=== PATIENT | female | born 1960 | race Caucasian/White ===

== ENCOUNTER 2021-06-06 12:38 | Emergency (ER) | payer BC, SELFPAY ==
--- NOTE | ~2021-06-06 | CT_ITS ---
EXAMINATION: CT abdomen pelvis wo con DATE: 06/06/2021 17:52 INDICATION: Flank pain TECHNIQUE: Computed tomography (CT) of the abdomen and pelvis was performed without intravenous contr ast. Automated exposure control and iterative reconstruction technique were employed. The dose-length product was 187.18 mGy-cm. COMPARISON: None FINDINGS: Subpleural atelectasis/scarring in the right lower lobe. Heart size is normal. No pericardial or pleu ral effusion. Small sliding-type hiatal hernia. Liver, gallbladder, spleen, pancreas, left adrenal gl and and left kidney are normal. There is prominent right perinephric stranding which partially obscur es the likely normal right adrenal gland. There is mild right hydroureteronephrosis which extends to the bladder. No evident obstructing mass or stone. There is increased attenuation diffusely along the proximal to mid right ureter which suggests either hematuria or pyuria. Several the was in the pelvi s including peripheral to the distal right ureter. Bladder and anteverted uterus are normal. Extensiv e diverticulosis without adjacent inflammatory stranding to suggest acute diverticulitis. Small bowel and appendix are normal. No abscess or free intraperitoneal gas or fluid. No pathologically enlarged abdominal or pelvic lymphadenopathy. Small fat-containing left inguinal hernia. Mild lumbar levocurv ature. Chronic appearing L1 compression fracture with 20% anterior vertebral body height loss. IMPRESSION: 1. Prominent stranding surrounding the right kidney and ureter with mild right hydroureteronephrosis without evident obstructing stone or mass. Increased density to the urine in the proximal to mid righ t ureter suggests either hematuria or pyuria and would correlate with urinalysis. Given the absence o f a definitive etiology could also consider further evaluation with either CT urogram or ureteroscopy /retrograde pyelogram as clinically indicated. 2. Extensive diverticulosis. Reviewed, dictated and finalized at location . [facility] IMPRESSION: 1. Prominent stranding surrounding the right kidney and ureter with mild right hydroureteronephrosis without evident obstructing stone or mass. Increased dens ity to the urine in the proximal to mid right ureter suggests either hematuria or pyuria and would correlate with urinalysis. Given the absence of a definitiv e etiology could also consider further evaluation with either CT urogram or ure teroscopy/retrograde pyelogram as clinically indicated. 2. Extensive diverticulosis.
[2021-06-06 13:15] VITALS: BP 155/104; PULSE 110; RESP 18; TEMP 37.3; O2SAT 95
[2021-06-06] MEDS: ONDANSETRON INJ 4 MG/2 ML VIAL IV PUSH (16:13)
[2021-06-06] MEDS: MORPHINE SULFATE (*CRX) 4 MG/ML INJ IV PUSH ×2 (16:13→18:52)
[2021-06-06] MEDS: SODIUM CHLORIDE 0.9% IV 1,000 ML 999 ML IV CONT (16:13)
[2021-06-06 16:32] LABS: Basophils Absolute Auto 0.1 K/mm3 (0.0-0.1); Basophils Percent Auto 0.4 % (0.2-1.2); Eosinophils Absolute Auto 0.2 K/mm3 (0-0.3); Hematocrit 33.9 % (37.0-47.0); Hemoglobin 11.1 g/dL (12.0-15.0); Immature Granulocyte Absolute 0.15 K/mm3 (0.00-0.031); Immature Granulocyte Percent A 0.9 % (0-0.5); Lymphocytes Absolute Auto 0.24 K/mm3 (0.9-3.2); Lymphocytes Percent Auto 1.5 % (18.3-44.2); Mean Corpuscular HGB Conc 32.7 g/dl (32-36); Mean Corpuscular Hemoglobin 28.6 pg (26-34); Mean Corpuscular Volume 87.4 fl (80-100); Mean Platelet Volume 9.3 fl (7.4-10.4); Monocytes Absolute Auto 0.3 K/mm3 (0.1-0.6); Monocytes Percent Auto 1.6 % (2.6-8.5); Neutrophils Absolute Auto 15.6 K/mm3 (1.3-6.7); Neutrophils Percent Auto 94.6 % (45.5-73.1); Platelet Count Result 175 k/mm3 (150-375); Red Blood Count 3.88 M/mm3 (4.2-5.4); Red Cell Distribution Width 13.7 % (11.5-14.5); White Blood Count 16.5 K/mm3 (4.5-10.0)
[2021-06-06 16:46] LABS: Alanine Aminotransferase 17 U/L (4-35); Albumin Level 3.9 g/dL (3.5-5.1); Alkaline Phosphatase 87 U/L (38-126); Anion Gap 9 mmol/L (8-16); Aspartate Amino Transferase 28 U/L (14-36); Bilirubin,Total 1.5 mg/dL (0.2-1.3); Blood Urea Nitrogen 12 mg/dL (7-17); Calcium 8.5 mg/dL (8.4-10.2); Carbon Dioxide 23 mmol/L (22-30); Chloride 107 mmol/L (98-107); Estimated CRCL calculation 43 ml/min; Estimated Glomerular Filt Rate > 60; Glucose 118 mg/dL (65-110); Potassium 3.1 mmol/L (3.4-5.0); Sodium 139 mmol/L (137-145)
[2021-06-06 17:15] LABS: Add Urine Microscopic? YES; Appearance Urine Cloudy (Clear); Bilirubin Urine Negative (Negative); Blood Urine 3+ (Negative); Color Urine Yellow (Yellow); Glucose Urine UA Negative (Negative); Ketones Urine Trace mg/dL (Negative); Leukocyte Esterase Ur Trace LEU/UL (Negative); Nitrate Urine Negative (Negative); Protein Urine Negative (Negative); RBC Urine >75 /hpf (0-2); Specific Grav Ur 1.012 (1.001-1.035); Urobilinogen Urine Negative mg/dL (<2.0); WBC Urine >75 /hpf
--- NOTE | 2021-06-06 18:51 | ED.ABDPAIN ---
HPI - Abdominal Pain General Chief Complaint: Abdominal Pain Stated Complaint: Lower back pain. Blood in urine. Time Seen by Provider: 06/06/21 15:29 History of Present Illness HPI narrative: Patient is a 61-year-old female who presents ER with flank pain. Began today. Associate with pain in her right abdomen that goes to her right flank. Associated with nausea. Has urinary frequency and urgency and dysuria. Concerned she has infection so she took some oral penicillin at home. No improvement and came to the ER to be evaluated. No history of kidney stones or infection previously. Related Data Allergies Allergy/AdvReac Type Severity Reaction Status Date / Time codeine Allergy Unknown nausea Verified 07/13/19 09:38 poison shadi extract Allergy Unknown Skin Verified 07/13/19 09:38 Reaction Review of Systems Review of Systems: All systems reviewed & are unremarkable except as noted in HPI and below Constitutional: Constitutional: Denies chills, Denies fever(s) and Denies weakness ENT: Denies nasal congestion and Denies sore throat Cardiovascular: Cardiovascular: Denies chest pain, Denies rapid heart rate and Denies radiating jaw, neck or arm pain Respiratory: Respiratory: Denies cough, Denies dyspnea and Denies wheezing Gastrointestinal: Gastrointestinal: Reports abdominal pain, Denies diarrhea, Reports nausea and Reports vomiting Genitourinary: Genitourinary: Reports hematuria, Reports nocturia, Reports dysuria, Reports flank pain and Denies urinary incontinence PMF Past Medical History Medical History (Updated 06/06/21 @ 19:10 by Geoff Chamberlain MD) Healthy female adult Surgical History Surgical History (Updated 06/06/21 @ 18:52 by Geoff Chamberlain MD) History of tubal ligation Social History Social History Smoking status: Never smoker Alcohol intake: never Exam Narrative: GENERAL: Uncomfortable-appearing, well-nourished, and in no acute distress. HEAD: Normocephalic, atraumatic. ENT: Mucous membranes moist. CHEST: Clear to auscultation. No respiratory distress. HEART: Regular rate and rhythm. Normal peripheral pulses. ABDOMEN: Soft, nontender, nondistended, right CVA tenderness. EXTREMITIES: Normal range of motion. No edema. SKIN: Warm, dry, no rash. NEURO: Alert and oriented x3. PSYCH: Normal mood and affect. Course Course Emergency Course: Patient informed results. Given additional dose of pain medication as well as IV ceftriaxone. I discussed the case with Dr. Buck with urology. Feels patient likely has a stone that is passed versus pyelonephritis. He thinks IV antibiotic therapy and discharge is appropriate. Patient be given pain and nausea medication for home in addition to antibiotics. Dr. Buck would also like the patient to receive a kidney ultrasound prior to a follow-up urology visit. He is taken the patient's information will make these arrangements. Vital Signs Vital signs: Vital Signs Temperature 99.2 F 06/06/21 13:15 Pulse Rate 110 H 06/06/21 13:15 Respiratory Rate 18 06/06/21 13:15 Blood Pressure 155/104 H 06/06/21 13:15 Pulse Oximetry 95 06/06/21 13:15 Temperature 99.8 F H 06/06/21 18:52 Pulse Rate 110 H 06/06/21 13:15 Respiratory Rate 18 06/06/21 13:15 Blood Pressure 155/104 H 06/06/21 13:15 Pulse Oximetry 95 06/06/21 13:15 MDM - Abdominal Pain Lab Data Result diagrams: 06/06/21 16:18 06/06/21 16:18 Labs: Lab Results 06/06/21 06/06/21 06/06/21 Range/Units 16:18 16:18 16:18 WBC 16.5 H (4.5-10.0) K/mm3 RBC 3.88 L (4.2-5.4) M/mm3 Hgb 11.1 L (12.0-15.0) g/dL Hct 33.9 L (37.0-47.0) % MCV 87.4 (80-100) fl MCH 28.6 (26-34) pg MCHC 32.7 (32-36) g/dl RDW 13.7 (11.5-14.5) % Plt Count 175 (150-375) k/mm3 MPV 9.3 (7.4-10.4) fl Immature Gran % (Auto) 0.9 H (0-0.5) % Neut % (Auto) 94.
[2021-06-06 18:52] VITALS: TEMP 37.7
[2021-06-06] MEDS: HYDROcodone/acetaminophen (*CRX) 5-325 MG TABLET 1 TAB PO (20:18)
[2021-06-06 20:25] VITALS: PULSE 75; RESP 18; O2SAT 99
== END 2021-06-06 20:30 | disposition home or self-care (01) ==
PROVIDERS: Emergency Provider Emergency Medicine; PCP Family Medicine
DX: N12 Tubulo-interstitial nephritis, not specified as acute or chronic (principal); N13.4 Hydroureter; K57.90 Diverticulosis of intestine, part unspecified, without perforation or abscess without bleeding
CPT/HCPCS: 36415; 74176; 80053; 81001; 81025; 85025; 87086; 96361; 96365; 96375; 96376; 99284; A9270; J0696; J2270; J2405; J7030

== ENCOUNTER 2024-12-21 13:07 | Emergency (ER) | payer MEDICARE, BC, SELFPAY ==
--- NOTE | ~2024-12-21 | XR_ITS ---
EXAM/ PROCEDURE: XR knee LT min 4V - 12/21/2024 13:40 CDT HISTORY: 64 years old Female with lateral pain COMPARISON: None available TECHNIQUE: Three view(s) FINDINGS/ IMPRESSION: There are no fractures or dislocations.Joint spaces are within normal limits. Reviewed, dictated and finalized at location A.
--- NOTE | 2024-12-21 13:14 | ED_ITS ---
HPI - Extremity Injury (Lower) General Chief Complaint: Extremity Injury, Lower Stated Complaint: Fall Injury/Left Knee Time Seen by Provider: 12/21/24 13:22 Source: patient, RN notes reviewed and old records reviewed Mode of arrival: ambulatory Limitations: no limitations History of Present Illness HPI Narrative: 64-year-old female presents to the [facility] with complaints of left knee pain post fall. fall On December 17, 4 days ago. currently using a cane. Did buy a knee brace. Related Data Home Medications ?Medication ?Instructions ?Recorded ?Confirmed ?Last Taken ?Type No Home Medications 12/21/24 Unknown History Allergies Allergy/AdvReac Type Severity Reaction Status Date / Time codeine Allergy Unknown nausea Verified 12/21/24 13:23 poison shadi extract Allergy Unknown Skin Verified 12/21/24 13:23 Reaction Review of Systems Review of Systems: All systems reviewed & are unremarkable except as noted in HPI and below Constitutional: Constitutional: Reports no additional constitutional complaints ENT: Reports system reviewed and no additional complaints, except as documented Cardiovascular: Cardiovascular: Reports no additional cardiovascular complaints, Denies chest pain and Denies dyspnea Respiratory: Respiratory: Reports no additional respiratory complaints, Denies chest congestion, Denies cough and Denies dyspnea Musculoskeletal: Musculoskeletal: Reports as per HPI Integumentary/Breasts: Skin/Breast: Reports system reviewed and no additional complaints, except as docu PMFSH Past Medical History Medical History Healthy female adult Surgical History Surgical History History of tubal ligation Social History Social History Smoking status: Never smoker Alcohol intake: never Comments At the time of my signature, I reviewed and agree with the nursing past medical, surgical, social, and family history. There is no relevant family history pertinent to the patient complaint. Exam Const: General: cooperative, healthy appearing, comfortable, no acute distress, well developed, alert and well nourished Nutritional Appearance: well nourished Orientation/consciousness: patient oriented x3 Limitations: no limitations HENMT: Head: normal to inspection Eyes: General: appearance normal, both eyes and all related structures Alignment and Position: alignment normal Neck: Neck: normal visual inspection, full ROM, no lymphadenopathy and no meningeal signs Chest: Chest palpation & inspection: normal inspection of the chest Resp: Effort & Inspection: normal respiratory effort and able to speak in complete sentences Cardio: Rate: regular rate Skin: General skin exam: normal color and no rashes or lesions noted Neuro: General: patient oriented x3, gait normal, moves all extremities and no meningeal signs Cognition (Neuro): normal cognition Speech: normal speech Gait exam (Neuro): Normal gait present Extrem: General: normal to inspection, full ROM, capillary refill normal and normal gait Left lower extremity: full ROM and knee Details: tenderness ( lateral lateral), swelling ( generalized) and normal ROM Psych: Appearance: grossly normal and well kempt Mental Status: mental status grossly normal Speech and movement: Normal speech and movement present and Clear speech present Affect: normal affect Attitude: cooperative Course Course Level of Care: Express Care Visit Vital Signs Vital signs: Vital Signs Temperature 98.0 F 12/21/24 13:18 Pulse Rate 92 12/21/24 13:18 Respiratory Rate 20 12/21/24 13:18 Blood Pressure 150/102 H 12/21/24 13:18 Pulse Oximetry 100 12/21/24 13:18 Oxygen Delivery Room Air 12/21/24 13:18 Temperature 98.0 F 12/21/24 13:18 Pulse Rate 92 12/21/24 13:18 Respiratory Rate 20 12/21/24 13:18 Blood Pressure 150/102 H 12/21/24 13:18 Pulse Oximetry 100 12/21/24 13:18 Oxygen Delivery Room Air 12/21/24 13:18 Reviewed MDM - Extremity Injury (Lower) MDM Narrative Medical decision making narrative: patient sitting. Patient is nontoxic, vitals stable. Patient presents for knee pain x4 days. X-ray is negative. Patient appropriate for outpatient treatment with close follow Discharge instructions reviewed with patient, as well as provided in writing per nursing staff. The instructions also include specific and strict return/GO TO THE ER as well as f/u information. All questions have been answered, and the patient deny any further questions with discharge and discharge plan. Some parts of this dictation were generated by voice recognition software and may contain typographical and/or grammatical inaccuracies. Differential Diagnosis Differential diagnosis: Likely other (Knee sprain, strain, fracture) Imaging Data Radiologist's impression: EXAM/ PROCEDURE: XR knee LT min 4V - 12/21/2024 13:40 CDT HISTORY: 64 years old Female with lateral pain COMPARISON: None available TECHNIQUE: Three view(s) FINDINGS/ IMPRESSION: There are no fractures or dislocations.Joint spaces are within normal limits. Critical Care Time Critical Care Time Critical Care Time: No Discharge Plan Discharge Clinical Impression: Acute knee pain, Contusion of knee, left Patient Disposition: Home Condition: Stable Instructions: Knee Pain (ED) Additional Instructions: Your Xray did not show a fracture. Ice should be applied to help reduce swelling. It can be used for 20 to 30 minutes, every 2-3 hours while awake. Do not apply ice directly to your skin. wear the knee brace during the day, not at night You can alternate ibuprofen 600mg and Tylenol 650mg every 4 hours as needed for pain Please schedule a follow-up visit with your personal physician for further evaluation and treatment within 2 weeks especially if symptoms persist. For new or worsening symptoms go directly to the emergency room Patient Language: Kiswahili Prescriptions: No Action No Home Medications Follow-up/Referrals: Adela,MD Norberto [Primary Care Provider] - 1 Week ( [facility] follow-up) Time of Disposition: 14:10
--- OUTSIDE RECORDS SUMMARY | 2024-12-21 13:15 | XMS_ITS | Referral Summary ---
Author Organization [facility] Address [address] [place] [id number] Phone Care Team Providers Care Men'S Swim Coach Name Role Phone Norberto Chapman MD Primary Care Provider [phone] Allergies Active Allergy Reactions Criticality Noted Date Comments Codeine Nausea & Vomiting Low 04/21/2024 Poison Susan Extract Itching Low 08/22/2022 Medications No known medications Active Problems Problem Noted Date Diagnosed Date Encounter for screening colonoscopy 08/26/2023 Dyslipidemia 08/23/2023 Assessment & Plan (08/23/2023 4:48 PM SAFETY EQUIPMENT TESTING SPECIALIST): High total and LDL cholesterol; ASCVD risk score is 4.3%, low risk Encouraged continued dietary changes, low-fat high-fiber diet, 30 minutes moderate intensity exercise daily to reduce cholesterol levels Immunizations Immunization Administration Dates Next Due COVID-19 mRNA ([place]) 0.3 m L (30 mcg) vaccine (12 years and up) 02/24/2024 Influenza, Quadrivalent, Estefania l Culture-based MDCK, Preservative Free, Antibiotic Free, Intramuscular 03/08/2023,03/10/2021 Influenza, Quadrivalent, Split, Intramuscular Influenza, Quadrivalent, Spl it, Preservative Free, Intramuscular 04/06/2022 Influenza, Trivalent, High D ose, Split, Preservative Free, Intramuscular 02/16/2024 Pneumococcal Conjugate Pcv20 08/26/2024 RSV Vaccine, Pref, Recombina nt, Subunit, Adjuvanted, PF, IM (Arexvy) 03/15/2023 Social History Tobacco Use Types Packs/Day Years Used Date Smoking Tobacco: Never Cigarettes Smokeless Tobacco: Never Tobacco Cessation:Counseling Given: Not Answered Humiliation, Afraid, Rape, and Kick questionnair e Answer Date Recorded Within the last year, have y ou been afraid of your partner or ex-partner? No 08/22/2022 Within the last year, have y ou been humiliated or emotionally abused in other ways by your partner or ex-partner? No Within the last year, have y ou been kicked, hit, slapped, or otherwise physically hurt by your partner or ex-partner? No 08/22/2022 Within the last year, have y ou been raped or forced to have any kind of sexual activity by your partner or ex-partner? No 08/22/2022 Social Connection and Isolat ion Panel [NHANES] Answer Date Recorded In a typical week, how many times do you talk on the phone with family, friends, or neighbors? More than three times a week 08/22/2022 How often do you get togethe r with friends or relatives? More than three times a week 08/22/2022 How often do you attend chur ch or anglican services? Never 08/22/2022 Do you belong to any clubs o r organizations such as mosque groups, unions, fraternal or athletic groups, or school groups? Yes 08/22/2022 How often do you attend meet ings of the clubs or organizations you belong to? More than 4 times per year 08/22/2022 Are you , , di vorced, , never , or living with a partner? 08/22/2022 AUDIT-C Answer Date Recorded Q1: How often do you have a drink containing alcohol? Never 04/21/2024 Q2: How many drinks containi ng alcohol do you have on a typical day when you are drinking? Patient does not drink Frequency of Binge Drinking Not on file 10/2023 Overall Financial Resource Strain (CARDIA) Answe r Date Recorded How hard is it for you to pa y for the very basics like food, housing, medical care, and heating? Not hard at all 08/22/2022 PHQ-2 Answer Date Recorded PHQ-2 Total Score (If total score is 3 or more points, staff should administer the PHQ-9) 0 08/26/2024 [facility] - Occupational Stress Questionnaire Answer Date Recorded Do you feel stress - tense, restless, nervous, or anxious, or unable to sleep at night because your mind is troubled all the time - these days? Rather much 08/22/2022 Exercise Vital Sign Answer Date Recorde d On average, how many days pe r week do you engage in moderate to strenuous exercise (like a brisk walk)? 5 days 08/22/2022 On average, how many minutes do you engage in exercise at this level? 80 min 08/22/2022 Hunger Vital Sign Answer Date Recorded Within the past 12 months, y ou worried that your food would run out before you got the money to buy more. Never true 08/23/19 23 Within the past 12 months, t he food you bought just didn't last and you didn't have money to get more. Never true 08/22/2022 PRAPARE - Transportation Answer Date Re corded In the past 12 months, has l ack of transportation kept you from medical appointments or from getting medications? No 01/2023 In the past 12 months, has l ack of transportation kept you from meetings, work, or from getting things needed for daily living? No 08/22/2022 Housing Stability Vital Sign Answer Moreno e Recorded In the last 12 months, was t here a time when you were not able to pay the mortgage or rent on time? No 08/22/2022 In the last 12 months, how many places have you lived? 1 08/22/2022 In the last 12 months, was t here a time when you did not have a steady place to sleep or slept in a [place] facility (including now)? No 08/22/2022 PHQ-9 Answer Date Recorded PHQ-9 Total Score 1 08/23/2023 Personal Safety Answer Date Recorded Have you ever been in or are you currently in a harmful physical or emotional relationship or is someone making you feel afraid or unsafe? Denies 04/22/2024 Comments Unknown Sex and Gender Information Value Date Recorded Sex Assigned at Not on file Legal Sex Female 6:38 PM SAFETY EQUIPMENT TESTING SPECIALIST Gender Identity Not on file Sexual Orientation Not on file Last Filed Vital Signs Vital Sign Reading Time Taken Comments Blood Pressure 130/84 08/26/2024 11:08 AM CDT Pulse 84 08/26/2024 11:08 AM CDT Temperature 36.7 C (98 F) 08/26/2024 11:08 AM CDT Respiratory Rate 18 08/26/2024 11:08 AM CDT Oxygen Saturation 98% 08/26/2024 11:08 AM CDT Inhaled Oxygen Concentration - - Weight 59.9 kg (132 lb) 08/26/2024 11:08 AM CDT Height 157.5 cm (5' 2) 08/26/2024 11:08 AM CDT Body Mass Index 24.14 08/26/2024 11:08 AM CDT Plan of Treatment Not on file Procedures Procedure Name Priority Date/Time Associated Diagnosis Comments COLONOSCOPY 04/22/2024 7:37 AM SAFETY EQUIPMENT TESTING SPECIALIST HEPATITIS C ANTIBODY Routine 08/20/2023 11:57 AM SAFETY EQUIPMENT TESTING SPECIALIST Encounter for hepatitis C screening test for low risk patient Lipid screening Annual physical exam from Last 3 Months or Most Recently Relevant to Health Maintenance Results * Colonoscopy (04/22/2024 7:37 AM SAFETY EQUIPMENT TESTING SPECIALIST) Anatomical Region Laterality Modality Other Narrative Procedure Note Janis Jeronimo MD - 04/22/2024 7:37 AM CST [facility] Patient Name: Saira Stanley Procedure Date: 04/22/2024 7:37 AM Date of : 1960 Admit Type: Outpatient Age: 63 Gender: Female Attending MD: Janis Jeronimo M.D. Room: [facility] ENDOSCOPY ROOM 2 Note Status: Addendum Patient Profile: This is a 63 year old female history of HLD herefor colon polyp surveillance. Last colonoscopy 2017normal per patient, but did have polyps on priorcolonoscopy. No family hx of colon cancer. Procedure: Colonoscopy Indications: High risk colon cancer surveillance: Personalhistory of colonic polyps, Last colonoscopy: 2017 Referring MD: Norberto Chapman M.D. Providers: Janis Jeronimo M.D. Impression: - Hemorrhoids found on perianal exam. - One 3 mm polyp in the transverse colon, removedwith a cold snare. Resected and retrieved. - Diverticulosis in the entire examined colon. - External and internal hemorrhoids. Recommendation: - Patient has a contact number available for emergencies. The signs and symptoms of potential delayed complications were discussed with thepatient. Return to normal activities tomorrow. Written discharge instructions were provided to thepatient. - Discharge patient to home (with escort). - High fiber diet. - Continue present medications. - Await pathology results. - Repeat colonoscopy in 7 years for surveillancebased on pathology results. - Return to referring physician as previously scheduled. Medicines: Monitored Anesthesia Care Complications: No immediate complications. Estimated Blood Loss: Estimated blood loss was minimal. Procedure: Pre-Anesthesia Assessment: - Prior to the procedure, a History and Physicalwas performed, and patient medications and allergieswere reviewed. The patient is competent. The risks and benefits of the procedure and the sedation optionsand risks were discussed with the patient. Allquestions were answered and informed consent was obtained. Patient identification and proposed procedure were verified by the physician, the mattress weaver and the office automation technician in the endoscopy suite. Mental Status Examination: normal. Prophylactic Antibiotics: The patient does not require prophylactic antibiotics. Prior Anticoagulants: The patient has taken no anticoagulant or antiplatelet agents. Afterreviewing the risks and benefits, the patient was deemed in satisfactory condition to undergo the procedure.The anesthesia plan was to use monitored anesthesiacare (MAC). Immediately prior to administration of medications, the patient was re-assessed foradequacy to receive sedatives. The heart rate, respiratory rate, oxygen saturations, blood pressure, adequacyof pulmonary ventilation, and response to care were monitored throughout the procedure. The physical status of the patient was re-assessed after the procedure. The benefits, risks and alternatives of theprocedure and sedation were discussed and informed consentwas obtained. All questions were answered. Please referto the signed informed consent document in the medical record. The bowel preparation used was Miralax via split dose instruction. The bowel preparation usedwas bisacodyl tablets via split dose instruction. The scope was passed under direct vision. The Pediatric Colonoscope PCF-H190L [id number] was introducedthrough the anus and advanced to the the cecum, identifiedby appendiceal orifice and ileocecal valve. The colonoscopy was performed without difficulty. The patient tolerated the procedure well. The qualityof the bowel preparation was adequate. Bowel prep was administered using a split dose. Findings: Hemorrhoids were found on perianal exam. A 3 mm polyp was found in the transverse colon. The polyp was flat.The polyp was removed with a cold snare. Resection and retrieval were complete. Scattered small and large-mouthed diverticula were found in theentire colon. External and internal hemorrhoids were found during retroflexion and during endoscopy. The hemorrhoids were large. Janis Jeronimo M.D. 04/22/2024 9:39:16 AM Number of Addenda: 1 Note Initiated On: 04/22/2024 7:37 AM Procedure Code(s): --- Professional --- 35151, Colonoscopy, flexible; with removal of tumor(s), polyp(s), or other lesion(s) by snare technique --- Technical --- 66712, Colonoscopy, flexible; with removal of tumor(s), polyp(s), or other lesion(s) by snare technique Diagnosis Code(s): --- Professional --- Z86.010, Personal history of colonic polyps K64.8, Other hemorrhoids D12.3, Benign neoplasm of transverse colon (hepatic flexure orsplenic flexure) K57.30, Diverticulosis of large intestine without perforation orabscess without bleeding --- Technical --- Z86.010, Personal history of colonic polyps K64.8, Other hemorrhoids D12.3, Benign neoplasm of transverse colon (hepatic flexure orsplenic flexure) K57.30, Diverticulosis of large intestine without perforation orabscess without bleeding CPT copyright 2020 [employer]. All rights reserved. The codes documented in this report are preliminary and upon male impersonator reviewmay be revised to meet current compliance requirements. Recognized by the [employer] for promoting quality in endoscopy Addendum Number: 1 Addendum Date: 05/27/2024 10:55:04 AM The polyp was completed resected but not retrieved. Will repeat colonoscopy in 7 years. Janis Jeronimo M.D. 05/27/2024 10:55:43 AM Janis Jeronimo MD ENDOSCOPY PROCEDURES Edited Resu lt - Final * Hepatitis C antibody Blood (08/20/2023 11:57 AM SAFETY EQUIPMENT TESTING SPECIALIST) Hep C Ab Nonreactive Nonreactive SHELL [facility] ([place]) Comment: Interpretive Data Nonreactive: Antibodies to HCV not detected. Does NOT exclude the possibility of recent exposure to HCV. Equivocal: Equivocal for HCV antibodies. Supplemental molecular testing will be automatically performed to determine infection status in accordance with current CDC screening recommendations. Reactive: Positive for HCV antibodies. This may represent current or past HCV infection. Supplemental molecular testing will be automatically performed to determine current infection status in accordance with current CDC screening recommendations. Interpretive data was last revised on 2019. Testing performed by: [facility], [address] [place] [address], [place]., [address] Blood 08/20/2023 11:5 7 AM SAFETY EQUIPMENT TESTING SPECIALIST 08/20/2023 6:10 PM SAFETY EQUIPMENT TESTING SPECIALIST us Norberto Chapman MD LAB MICROBIOLOGY - GENERA L ORDERABLES Final Result [facility] ([place]) [facility] Department [place] [address] from Last 3 Months or Most Recently Relevant to Health Maintenance Insurance [employer] [place] [facility] Advance Directives For more information, please contact: [phone] * Full Code (Latest Code Status on File) Date Activated Date Inactivated Comments 04/22/2024 7:48 AM 04/22/2024 2:25 PM * Full Code Date Activated Date Inactivated Comments 04/22/2024 7:48 AM 04/22/2024 7:48 AM Care Teams Men'S Swim Coach Relationship Specialty Start Date End Date [place] [id number] PCP - General Family Medicine 08/22/22
--- OUTSIDE RECORDS SUMMARY | 2024-12-21 13:15 | XMS_ITS | Clinical Summary ---
Author Organization [facility] Address [address] [address] Phone Care Team Providers Care Endodontics Dentist Name Role Phone Norberto Chapman MD Primary Care Provider [phone] [phone] Allergies Active Allergy Reactions Criticality Noted Date Comments Codeine Nausea & Vomiting Low 04/21/2024 Poison Susan Extract Itching Low 08/22/2022 Medications No known medications Active Problems Problem Noted Date Diagnosed Date Encounter for screening colonoscopy 08/26/2023 Dyslipidemia 08/23/2023 Assessment & Plan (08/23/2023 4:48 PM INSPECTION AND TESTING SUPERVISOR): High total and LDL cholesterol; ASCVD risk score is 4.3%, low risk Encouraged continued dietary changes, low-fat high-fiber diet, 30 minutes moderate intensity exercise daily to reduce cholesterol levels Immunizations Immunization Administration Dates Next Due COVID-19 mRNA ([employer]) 0.3 m L (30 mcg) vaccine (12 years and up) 02/24/2024 Influenza, Quadrivalent, Estefania l Culture-based MDCK, Preservative Free, Antibiotic Free, Intramuscular 03/08/2023,03/10/2021 Influenza, Quadrivalent, Split, Intramuscular Influenza, Quadrivalent, Spl it, Preservative Free, Intramuscular 04/06/2022 Influenza, Trivalent, High D ose, Split, Preservative Free, Intramuscular 02/16/2024 Pneumococcal Conjugate Pcv20 08/26/2024 RSV Vaccine, Pref, Recombina nt, Subunit, Adjuvanted, PF, IM (Arexvy) 03/15/2023 Surgical History Surgery Date Site/Laterality Comments EYE SURGERY Right brow bone above eye LASIK COLONOSCOPY 06/17/2016 - 06/16/2017 Medical History Medical History Date Comments UTI (urinary tract infection) Family History Medical History Relation Name Comments Aortic aneurysm Father Parkinsonism Mother Relation Name Status Comments Father Mother Alive Social History Tobacco Use Types Packs/Day Years [...] 08/22/2022 How often do you attend chur or episcopal services? Never 08/22/2022 Do you belong to any clubs o r organizations such as worship groups, unions, fraternal or athletic groups, or [...] Frequency of Binge Drinking Not on file 11/0 10/2023 Overall Financial Resource Strain (CARDIA) Answe r Date Recorded How hard is it for you to pa y for the very basics like food, housing, medical care, and heating? Not hard at all 08/22/2022 PHQ-2 Answer Date Recorded PHQ-2 Total Score (If total score is 3 or more points, staff should administer the PHQ-9) 0 08/26/2024 [facility]ational Stress Questionnaire Answer Date Recorded [...] place to sleep or slept in a fpc (including now)? No 08/22/2022 PHQ-9 Answer Date [...] on file Legal Sex Female 6:38 PM INSPECTION AND TESTING SUPERVISOR Gender Identity Not on file Sexual Orientation Not on file Obstetrics History Last Filed Vital Signs Vital Sign Reading [...] 08/26/2024 11:08 AM CDT Plan of Treatment Health Maintenance Due Date Last Done Comments Breast Cancer Screening-Mammogram 1960 Cervical Cancer Screening 1960 Osteoporosis Screening-Bone Density Scan 1960 DTaP/Tdap/Td Vaccine (1 - Tdap) 1970 Zoster Vaccine (1 of 2) 2009 Covid-19 Vaccine (2023-2 5 season) 2024 02/24/2024, 03/08/2023, 02/23/2022, Additional history exists Influenza Vaccine (#1) 2025 , 03/08/2023, 04/06/2022, Additional history exists Depression Screening 08/26/2025 08/26/2024, 08/23/2023, 08/23/2023, Additional history exists Fall Risk Assessment 08/26/2025 08/26/2024 Well Visit 65+ 08/26/2025 08/26/2024, 01/2024, 08/22/2022 Colon Cancer Screening-Colonoscopy 04/22/20312023, 11/08/2016 Hepatitis C Screening Completed 08/20/2023 Hepatitis B Screening Completed 08/24/2024 Pneumococcal vaccine 65+ Completed 08/26/2024 Procedures Procedure Name Priority Date/Time Associated Diagnosis Comments COLONOSCOPY 04/22/2024 7:37 AM INSPECTION AND TESTING SUPERVISOR HEPATITIS C ANTIBODY Routine 08/20/2023 11:57 AM INSPECTION AND TESTING SUPERVISOR Encounter for hepatitis C screening test for low risk patient Lipid screening Annual physical exam from Last 3 Months or Most Recently Relevant to Health Maintenance Results * Colonoscopy (04/22/2024 7:37 AM INSPECTION AND TESTING SUPERVISOR) Anatomical Region Laterality Modality Other Narrative Procedure Note Janis Jeronimo MD - 04/22/2024 7:[address] [facility] Patient Name: Saira Stanley Procedure Date: 04/22/2024 7:37 AM Date of : 1960 Admit Type: Outpatient Age: 63 Gender: Female Attending MD: Janis Jeronimo M.D. Room: [facility] ENDOSCOPY ROOM 2 Note Status: Addendum Patient Profile: This is a 63 year old female history of HLD herefor colon polyp surveillance. Last colonoscopy 2017normal per patient, but did have polyps on priorcolonoscopy. No family hx of colon cancer. Procedure: Colonoscopy Indications: High risk colon cancer surveillance: Personalhistory of colonic polyps, Last colonoscopy: 2016 Referring MD: Norberto Chapman M.D. Providers: Janis [...] procedure were verified by the physician, the weatherization technician and the hearing aide technician in the endoscopy suite. Mental Status [...] under direct vision. The Pediatric Colonoscope PCF-H190L [id number] was introducedthrough the anus and advanced to [...] 7:37 AM Procedure Code(s): --- Professional --- 07483, Colonoscopy, flexible; with removal of tumor(s), polyp(s), or other lesion(s) by snare technique --- Technical --- 06723, Colonoscopy, flexible; with removal of tumor(s), polyp(s), [...] perforation orabscess without bleeding CPT copyright 2020 [employer]. All rights reserved. The codes documented in this report are preliminary and upon uniform room attendant reviewmay be revised to meet current compliance requirements. Recognized by the [employer] for promoting quality in endoscopy Addendum Number: 1 Addendum Date: 05/27/2024 10:55:04 AM The polyp was completed resected but not retrieved. Will repeat colonoscopy in 7 years. Janis Jeronimo M.D. 05/27/2024 10:55:43 AM us Janis Jeronimo MD ENDOSCOPY PROCEDURES Edited Resu lt - Final * Hepatitis C antibody Blood (08/20/2023 11:57 AM INSPECTION AND TESTING SUPERVISOR) Hep C Ab Nonreactive Nonreactive [facility]) Comment: Interpretive Data Nonreactive: Antibodies to HCV [...] last revised on 2019. Testing performed by: [facility], [address] [place] [address], [place]., [address] Blood 08/20/2023 11:5 7 AM INSPECTION AND TESTING SUPERVISOR 08/20/2023 6:10 PM INSPECTION AND TESTING SUPERVISOR us Norberto Chapman MD LAB MICROBIOLOGY - GENERA L ORDERABLES Final Result [facility]) [facility] [place] [address] from Last 3 Months or Most Recently Relevant to Health Maintenance Insurance [employer] [place] [facility] Advance Directives For more information, please contact: [phone] * Full Code (Latest Code Status on File) Date Activated Date Inactivated Comments 04/22/2024 7:48 AM 04/22/2024 2:25 PM * Full Code Date Activated Date Inactivated Comments 04/22/2024 7:48 AM 04/22/2024 7:48 AM Care Teams Endodontics Dentist Relationship Specialty Start Date End Date [place] [address] PCP - General Family Medicine 08/22/22
[2024-12-21 13:18] VITALS: BP 150/102; PULSE 92; RESP 20; TEMP 36.7; O2SAT 100
== END 2024-12-21 14:15 | disposition home or self-care (01) ==
PROVIDERS: Emergency Provider Nurse Practitioner; PCP Hospitalist
DX: M25.562 Pain in left knee (principal); S80.02XA Contusion of left knee, initial encounter; W19.XXXA Unspecified fall, initial encounter
CPT/HCPCS: 73564; 99213; G0463